=== PATIENT | male | born 1995 | race Caucasian/White ===

== ENCOUNTER 2017-04-06 01:53 | Emergency (ER) | payer BC ==
--- NOTE | 2017-04-06 02:49 | EDPHY ---
H & P Stated Complaint: r ankle foot pain climbing today Time Seen by Provider: 04/06/17 02:25 HPI/ROS: HPI: The patient presents with right foot and ankle pain after a fall which occurred at about 6:00 p.m. tonight while rock climbing. When he was climbing in an indoor climbing gym when he had a fall off the climbing wall while wrote in falling 5-15 feet and hitting his right foot against the climbing wall with a fair amount of momentum. He did have pain, however was able to finish climbing, walk, drive his car home. However, over the course of the evening he has had increased foot pain which is achy in nature and swelling. He took ibuprofen 800 mg at midnight with minimal improvement in his pain. He denies any numbness or tingling. He has been applying ice. REVIEW OF SYSTEMS Constitutional: No fever, no chills. Musculoskeletal: No back pain. Skin: No rashes. Neurological: No headache. PMHx: Healthy TRAUMA PHYSICAL General Appearance: Alert, no distress Head: Atraumatic Eyes: Pupils equal Respiratory: Breathing comfortably Skin: No lacerations, No abrasion Extremities: Right foot and ankle are diffusely tender with mild edema throughout, limited range of motion at the ankle secondary to pain Neurological: A&Ox3, GCS=15,normal motor function with 5/5 strength in all 4 extremities, normal sensory exam Source: Patient Exam Limitations: No limitations - Personal History Current Tetanus/Diphtheria Vaccine: Yes Current Tetanus Diphtheria and Acellular Pertussis (TDAP): Yes - Medical/Surgical History Hx Asthma: No Hx Chronic Respiratory Disease: No Hx Diabetes: No Hx Cardiac Disease: No Hx Renal Disease: No Hx Cirrhosis: No Hx Alcoholism: No Hx HIV/AIDS: No Hx Splenectomy or Spleen Trauma: No Other PMH: hape - Social History Smoking Status: Current some day smoker Constitutional: Initial Vital Signs Temperature (C) 36.9 C 04/06/17 01:57 Heart Rate 69 04/06/17 01:57 Respiratory Rate 18 04/06/17 01:57 Blood Pressure 153/92 H 04/06/17 01:57 O2 Sat (%) 96 04/06/17 01:57 O2 Delivery Mode Room Air Allergies/Adverse Reactions: No Known Allergies Allergy (Unverified 04/06/17 01:57) Home Medications: Medication Instructions Recorded NK [No Known Home Meds] 04/06/17 Medical Decision Making - Diagnostics Imaging Results: Right foot x-ray three view shows no fracture, no dislocation, interpreted by me , radiology interpretation is pending. Right ankle x-ray three view shows no fracture, no dislocation, interpreted by me, radiology interpretation is pending. Differential Diagnosis: This is a 21-year-old male who presents with rock climbing injury which occurred at about 6:00 p.m. last night. Initially with minimal pain, however pain is been progressive over the course of the evening. On exam, he is diffusely tender with limited range of motion secondary to pain. Differential diagnosis includes foot sprain, ankle sprain, foot fracture, ankle fracture. In the emergency department, patient was given ice. X-rays were obtained showing no fracture. I feel he is likely suffering from foot and ankle sprain. As I will place him in an ankle stirrup for comfort and give him crutches as needed. I have given him information for orthopedic follow-up. Departure - Departure Disposition: Home, Routine, Self-Care Clinical Impression: Right foot sprain Qualifiers: Encounter type: initial encounter Qualified Code(s): S93.601A - Unspecified sprain of right foot, initial encounter Condition: Good Instructions: Foot Sprain (ED), RICE Therapy (ED) Additional Instructions: You should please return to the emergency department if you are worse in any way. You should use plenty of ice, ibuprofen 400 mg with acetaminophen 650 mg every 6 hours as needed for pain. Keep the ankle splint in place for the next 1 week. If you continue to have ongoing pain I have given you information for follow up with the orthopedist Dr. Davis. Referrals: JESE FISHMAN [Other] - As per Instructions Steffen Davis MD [Medical Doctor] - As per Instructions
[2017-04-06 03:30] VITALS: BP 132/75; PULSE 74; RESP 16; TEMP 98.1; O2SAT 97
== END 2017-04-06 03:30 | disposition home or self-care (01) ==
DX: S93.601A Unspecified sprain of right foot, initial encounter (principal); F17.200 Nicotine dependence, unspecified, uncomplicated; W17.89XA Other fall from one level to another, initial encounter; Y92.89 Other specified places as the place of occurrence of the external cause; Y93.39 Activity, other involving climbing, rappelling and jumping off
CPT/HCPCS: L4350